=== PATIENT | female | born 1975 ===

== ENCOUNTER 2017-01-03 12:46 | Emergency (ER) | payer OTHER ==
--- NOTE | 2017-01-03 13:06 | ED PDOC ---
HPI: Abdomen Time Seen by Provider: 01/03/17 13:06 Chief Complaint (Nursing): Abdominal Pain Chief Complaint (Provider): abdominal pain History Per: Patient Additional Complaint(s): 41-year-old female with no past medical history presents to emergency department with upper abdominal pain, nausea, vomiting and abdominal distention 4 days. Patient states the pain is worse after meals. She denies any fever or chills. She has also had dry cough and sore throat. Patient is able to tolerate some liquids and solids. She has not taken any meds for pain relief. Patient denies any dysuria, hematuria, vaginal discharge or bleeding. Past Medical History Reviewed: Historical Data, Nursing Documentation, Vital Signs Vital Signs: Last Vital Signs Temp 97 F L 01/03/17 12:55 Pulse 74 01/03/17 12:55 Resp 18 01/03/17 12:55 BP 112/70 01/03/17 12:55 Pulse Ox 100 01/03/17 15:14 - Medical History PMH: No Chronic Diseases - Surgical History Surgical History: No Surg Hx - Family History Family History: States: No Known Family Hx - Living Arrangements Living Arrangements: With Family - Social History Current smoker - smoking cessation education provided: No Alcohol: None Drugs: Denies - Home Medications Home Medications: Ambulatory Orders Medication Instructions Recorded Ketorolac Tromethamine [Acular 1 drop OD QID #1 bottle 05/26/13 0.5%] Nitrofurantoin Macrocrystals 100 mg PO BID #14 cap 07/19/15 [Macrobid] Phenazopyridine Hydrochlorid2 200 mg PO TID #6 tab 07/19/15 [Pyridium] Famotidine [Pepcid] 20 mg PO DAILY #30 tab 01/03/17 Ondansetron [Zofran Odt] 4 mg PO ASDIR PRN #10 odt 01/03/17 - Allergies Allergies/Adverse Reactions: Allergies Allergy/AdvReac Type Severity Reaction Status Date / Time No Known Allergies Allergy Unverified 05/26/13 22:09 Review of Systems ROS Statement: Except As Marked, All Systems Reviewed And Found Negative Constitutional: Negative for: Fever, Chills Cardiovascular: Negative for: Chest Pain, Palpitations Respiratory: Positive for: Cough. Negative for: Shortness of Breath Gastrointestinal: Positive for: Nausea, Vomiting, Abdominal Pain. Negative for : Diarrhea, Constipation Genitourinary Female: Negative for: Dysuria, Frequency, Vaginal Discharge, Vaginal Bleeding Physical Exam - Reviewed Nursing Documentation Reviewed: Yes Vital Signs Reviewed: Yes - Physical Exam Appears: Positive for: Well, No Acute Distress Skin: Negative for: Rash Cardiovascular/Chest: Positive for: Regular Rate, Rhythm Respiratory: Positive for: Normal Breath Sounds Gastrointestinal/Abdominal: Positive for: Soft, Tenderness (Tenderness to right upper quadrant and epigastric region with upper abdominal distention noted, no guarding, no rebound). Negative for: Organomegaly, Mass Back: Negative for: L CVA Tenderness, R CVA Tenderness Extremity: Negative for: Pedal Edema Neurologic/Psych: Positive for: Alert, Oriented - Laboratory Results Result Diagrams: 01/03/17 14:24 01/03/17 14:24 Urine dip results: Positive for: Bilirubin (small), Protein. Negative for: Leukocyte Esterase, Blood, Nitrate, Ketones, Glucose - ECG Interpretation Of ECG: NSR 63 bpm, no acute finding, reviewed by PA and ED attending. O2 Sat by Pulse Oximetry: 100 Pulse Ox Interpretation: Normal - Other Rad Bedside chest X-Ray: Interpreted by Me, Viewed By Me X-Ray Interpretation: no acute finding Abdominal US X-Ray: Read By Radiologist X-Ray Interpretation: no acute finding Medical Decision Making Medical Decision Makin41 year old with upper abdominal pain Plan: CXR EKG Abd US CBC CMP Lipase Urine test and dip IVF IV zofran IV toradol Patient is aware of all diagnostic testing results, all questions answered. Patient feels better after meds were given. She tolerated water and juice in ED with no further emesis. Rx given for zofran and pepcid and patient was referred to clinic for follow up. Disposition - Clinical Impression Clinical Impression: Gastritis, Vomiting - Patient ED Disposition Is Patient to be Admitted: No Counseled Patient/Family Regarding: Studies Performed, Diagnosis, Need For Followup, Rx Given - [facility] [place],MD Edson [Medical Doctor] - Disposition: Routine/Home Disposition Time: 15:18 Condition: STABLE Additional Instructions: Take prescription that is directed as needed for vomiting and stomach upset. Follow dietary instructions. Follow-up with oil program compliance specialist or clinic in 2-3 days. Return any time if acutely worse. Prescriptions: Famotidine [Pepcid] 20 mg PO DAILY #30 tab Ondansetron [Zofran Odt] 4 mg PO ASDIR PRN #10 odt PRN Reason: Nausea/Vomiting Instructions: Gastritis (ED), Diet for Ulcers and Gastritis (ED), Acute Nausea and Vomiting (ED) Print Language: THAI Results - Lab Results Lab Results: 01/03/17 14:24 WBC 8.6 RBC 4.00 Hgb 11.9 L Hct 35.4 MCV 88.7 MCH 29.9 MCHC 33.7 RDW 12.9 Plt Count 204 MPV 7.3 Neut % (Auto) 68.4 Lymph % (Auto) 22.2 [place] % (Auto) 8.5 Eos % (Auto) 0.6 Baso % (Auto) 0.3 Neut # 5.9 Lymph # 1.9 [place] # 0.7 Eos # 0.1 Baso # 0.0 Sodium 144 Potassium 3.8 Chloride 104 Carbon Dioxide 25 Anion Gap 19 BUN 10 Creatinine 0.5 L Est GFR ( Amer) > 60 Est GFR (Non-Af Amer) > 60 Random Glucose 83 Calcium 8.7 Total Bilirubin 0.4 AST 22 ALT 29 Alkaline Phosphatase 81 Troponin I < 0.0120 Total Protein 7.2 Albumin 4.1 Globulin 3.2 Albumin/Globulin Ratio 1.3 Lipase 46 Urine Color Maggi Urine Clarity Slighty-cloudy Urine pH 7.0 Ur Specific [place] 1.033 H Urine Protein 100 Urine Glucose (UA) Neg Urine Ketones Trace Urine Blood Negative Urine Nitrate Negative Urine Bilirubin Negative Urine Urobilinogen 0.2-1.0 Ur Leukocyte Esterase Small Urine RBC (Auto) 10 H Urine Microscopic WBC 3 Ur Squamous Epith Cells 25 H Urine Bacteria Rare Grp A Beta Strep Ag Negative
[2017-01-03] MEDS ORDERED: Sodium Chloride 0.9% 1,000 ML IV STA (13:20)
--- NOTE | 2017-01-03 14:21 | US ---
HISTORY: Upper abdominal pain, vomiting, distention COMPARISON: None. TECHNIQUE: Grayscale imaging was performed. FINDINGS: LIVER: Measures 14.7 cm. Normal echogenicity of the liver parenchyma. No mass. No intrahepatic bile duct dilatation. GALLBLADDER: Unremarkable. No gallstones. COMMON BILE DUCT: Measures 2.5 mm. No stones. No dilatation. PANCREAS: Unremarkable as visualized. No mass. No ductal dilatation. RIGHT KIDNEY: Measures 9.2cm. Normal echogenicity. No calculus, mass, or hydronephrosis. LEFT KIDNEY: Measures 10.6cm. Normal echogenicity. No calculus, mass, or hydronephrosis. SPLEEN: Normal in size and contour. No mass. AORTA: No aneurysmal dilatation. IVC: Unremarkable. OTHER FINDINGS: None. IMPRESSION: Normal examination.
[2017-01-03 14:32] LABS: BASO % 0.3 % (0.0-2.0); EOS # 0.1 K/uL (0.0-0.7); EOS % 0.6 % (0.0-4.0); HEMATOCRIT 35.4 % (34.0-47.0); LYMPH # 1.9 K/uL (1.0-4.3); LYMPH % 22.2 % (20.0-40.0); MEAN CELL VOLUME 88.7 fl (81.0-99.0); MEAN CORPUSCULAR HEMOGLOBIN 29.9 pg (27.0-31.0); MEAN CORPUSCULAR HGB CONC 33.7 g/dL (33.0-37.0); MEAN PLATELET VOLUME 7.3 fl (7.2-11.7); MONO # 0.7 K/uL (0.0-0.8); MONO % 8.5 % (0.0-10.0); NEUT # 5.9 K/uL (1.8-7.0); NEUT % 68.4 % (50.0-75.0); NRBC % 0.1 % (0.0-0.0); RED CELL DISTRIBUTION WIDTH 12.9 % (11.5-14.5); WHITE BLOOD COUNT 8.6 K/uL (4.8-10.8)
[2017-01-03 14:45] LABS: RBC URINE 10 /hpf (0-3); URINE BACTERIA RARE (<OCC); URINE BILIRUBIN NEGATIVE (NEGATIVE); URINE BLOOD NEGATIVE (NEGATIVE); URINE COLOR AMBER (YELLOW); URINE GLUCOSE (UA) NEG (Normal); URINE KETONE TRACE mg/dL (NEGATIVE); URINE LEUKOCYTE ESTERASE SMALL Leu/uL (Negative); URINE PROTEIN 100 mg/dL (NEGATIVE); URINE UROBILINOGEN 0.2-1.0 mg/dL (0.2-1.0); WBC URINE 3 /hpf (0-5)
[2017-01-03 14:53] LABS: ALB/GLOB RATIO 1.3 (1.0-2.1); ALKALINE PHOSPHATASE 81 U/L (38-126); ALT/SGPT 29 U/L (9-52); AST/SGOT 22 U/L (14-36); BILIRUBIN,TOTAL 0.4 mg/dl (0.2-1.3); BLOOD UREA NITROGEN 10 mg/dl (7-17); CALCIUM 8.7 mg/dL (8.4-10.2); CARBON DIOXIDE 25 mmol/L (22-30); CHLORIDE 104 mmol/L (98-107); GFR AFRICAN-AMERICAN > 60; GLUCOSE,RANDOM 83 mg/dL (65-105); LIPASE 46 U/L (23-300); POTASSIUM 3.8 MMOL/L (3.6-5.0); SODIUM 144 mmol/l (132-148); TOTAL PROTEIN 7.2 G/DL (6.3-8.2)
--- NOTE | 2017-01-03 15:06 | RAD ---
HISTORY: Upper abdominal pain COMPARISON: No prior. FINDINGS: LUNGS: The lungs are clear. PLEURA: No significant pleural effusion identified, no pneumothorax apparent. CARDIOVASCULAR: Normal. OSSEOUS STRUCTURES: No significant abnormalities. VISUALIZED UPPER ABDOMEN: Normal. OTHER FINDINGS: None. IMPRESSION: No active pulmonary disease.
[2017-01-03 15:54] VITALS: BP 110/71; PULSE 79; RESP 20; TEMP 98; O2SAT 99
--- NOTE | 2017-01-03 22:57 | CARD ---
APPROVED REPORT EKG Measurement Heart [id number] ME [id number] <Conclusion> Normal sinus rhythm Normal ECG
== END 2017-01-03 16:10 | disposition home or self-care (01) ==
LOC: H.ER 12:46
DX: K29.70 Gastritis, unspecified, without bleeding (principal); R11.2 Nausea with vomiting, unspecified; R10.10 Upper abdominal pain, unspecified